=== PATIENT | female | born 1990 | race Caucasian/White ===

== ENCOUNTER 2018-11-23 02:15 | Emergency (ER) | payer OTHER ==
[2018-11-23 02:47] VITALS: BP 148/88; PULSE 92; TEMP 98.1; BMI 28.3
--- NOTE | 2018-11-23 02:49 | PDOC ---
History of Present Illness - General Chief Complaint: Rash Stated Complaint: ALLERGIC REACTION Time Seen by Provider: 11/23/18 02:49 - History of Present Illness Initial Comments: 11/23/18 02:49 Ms. Tse is a 28 yo female w/ no pmh who presents for evaluation of symptoms of itchy, burning rash over her trunk. Patient reports it started 3 days ago. Denies any other associated symptoms. No one else has a similar rash. Denies any known allergies. Localizes rash to her trunk, tops of her legs MENDY, minimally on arms. The patient denies chest pain, shortness of breath, headache and dizziness. Denies fever, chills, nausea, vomit, diarrhea and constipation. Denies dysuria, frequency, urgency and hematuria. Past History - Past Medical History Allergies/Adverse Reactions: Allergies Allergy/AdvReac Type Severity Reaction Status Date / Time No Known Allergies Allergy Verified 11/23/18 02:46 Home Medications: Ambulatory Orders Prednisone [Deltasone] 40 mg PO DAILY #8 tablet 11/23/18 - Suicide/Smoking/Psychosocial Hx Smoking History: Never smoked Have you smoked in the past 12 months: No Information on smoking cessation initiated: No Hx Alcohol Use: No Drug/Substance Use Hx: No Review of Systems - Review of Systems Comments:: 11/23/18 02:50 GENERAL/CONSTITUTIONAL: No fever or chills. No weakness. HEAD, EYES, EARS, NOSE AND THROAT: No change in vision. No ear pain or discharge. No sore throat. CARDIOVASCULAR: No chest pain or shortness of breath RESPIRATORY: No cough, wheezing, or hemoptysis. GASTROINTESTINAL: No nausea, vomiting, diarrhea or constipation. GENITOURINARY: No dysuria, frequency, or change in urination. MUSCULOSKELETAL: No joint or muscle swelling or pain. No neck or back pain. SKIN: +Rash as described. NEUROLOGIC: No headache, vertigo, loss of consciousness, or change in strength/ sensation. ENDOCRINE: No increased thirst. No abnormal weight change HEMATOLOGIC/LYMPHATIC: No anemia, easy bleeding, or history of blood clots. ALLERGIC/IMMUNOLOGIC: No hives or skin allergy. *Physical Exam - Vital Signs Last Vital Signs Temp Pulse Resp BP Pulse Ox 98.1 F 92 H 16 148/88 100 11/23/18 02:15 11/23/18 02:15 11/23/18 02:15 11/23/18 02:15 11/23/18 02:15 - Physical Exam Comments: 11/23/18 02:50 GENERAL: Awake, alert, and fully oriented, in no acute distress HEAD: No signs of trauma, normocephalic, atraumatic EYES: PERRLA, EOMI, sclera anicteric, conjunctiva clear ENT: Auricles normal inspection, hearing grossly normal, nares patent, oropharynx clear without exudates. Moist mucosa NECK: Normal ROM, supple, no lymphadenopathy, JVD, or masses LUNGS: No distress, speaks full sentences, clear to auscultation bilaterally HEART: Regular rate and rhythm, normal S1 and S2, no murmurs, rubs or gallops, peripheral pulses normal and equal bilaterally. ABDOMEN: Soft, nontender, normoactive bowel sounds. No guarding, no rebound. No masses EXTREMITIES: Normal inspection, Normal range of motion, no edema. No clubbing or cyanosis. NEUROLOGICAL: Cranial nerves II through XII grossly intact. Normal speech, normal gait, no focal sensorimotor deficits SKIN: +Erythematous, allergic type rash noted primarily to chest, abdomen, upper arms Medical Decision Making - Medical Decision Making 11/23/18 04:06 Ms. Tse is a 28 yo female w/ pmh as described who presents for evaluation of symptoms concerning for dermatologic rash. Patient denies any new soaps, contacts, etc. but says she did hold a cat recently. Patient instructed to take prednisone (sent to pharmacy) and benadryl as needed for rash. Discharging patient to home for further outpatient f/u as needed. *DC/Admit/Observation/Transfer Diagnosis at time of Disposition: Rash - Discharge Dispostion Disposition: HOME Condition at time of disposition: Fair - Prescriptions Prescriptions: Prednisone [Deltasone] 40 mg PO DAILY #8 tablet - Referrals Referrals: Yesy Arce MD [Primary Care Provider] - Fabian Blevins MD [Non Staff, Medical] - - Patient Instructions Printed Discharge Instructions: DI for Rash Additional Instructions: You were evaluated today in the ER for your rash. We sent a prescription to your pharmacy for treatment. Take all medication as proscribed. You may also use benadryl and cortisone cream per package instructions for further treatment as needed. We have provided quill worker information you may use if needed for further evaluation. Return to ER if any fever, chills, increase in pain, or other concerning symptoms. Usted fue evaluado hoy en la jennifer de emergencias por jhaveri erupcin. Le enviamos myra receta a jhaveri farmacia para jhaveri tratamiento. Dalia todos los medicamentos segn lo prescrito. Justin puede usar la crema de benadryl y cortisona segn las instrucciones del paquete para un tratamiento adicional segn sea necesario. Hemos proporcionado informacin dermatolgica que puede utilizar si es necesario para myra evaluacin adicional. Regrese a la jennifer de emergencias si tiene fiebre, escalofros, aumento del dolor u otros sntomas relacionados. Print Language: [place] CITIZEN - Post Discharge Activity
[2018-11-23] MEDS ORDERED: diphenhydrAMINE HCL 25 MG CAPSULE (FP) PO ONE ×2 (03:43→04:07)
[2018-11-23] MEDS ORDERED: predniSONE 20 MG TABLET (UD) PO ONE (03:43)
[2018-11-23] MEDS ORDERED: predniSONE 20 MG TABLET (UD) ONE (04:07)
--- NOTE | 2018-11-23 04:20 | PDOC ---
Attending Attestation - Resident Resident Name: Danie Huffman - ED Attending Attestation I have performed the following: I have examined & evaluated the patient, The case was reviewed & discussed with the resident, I agree w/resident's findings & plan, Exceptions are as noted - HPI HPI: 11/23/18 04:16 28 yo F no pmhx here with c/o rash. states started 3 days ago. diffuse over trunk neck and little on back. spares arms and leg. no new lotion or cream no new meds or detergent. only thing is she was with a cat prior to onset of rash. no tongue or lip swelling. no wheezing. no h/o seasonal allergies. did not take anything prior to arrival. - Physicial Exam PE: 11/23/18 04:19 awake alert lungs clear bilaterally heart rrr no mrg abd soft nt nd. skin with diffuse contact dermatitis , eczamatous rash. raised. erythematous, . diffuse across stomach, chest and neck. no herald patch. - Medical Decision Making 11/23/18 04:20 pt with dermatitis , likley hypersensitivity, usure possible from cat. vera treat with benadryl claritin and prednisone. fu pcp.
== END 2018-11-23 04:24 | disposition home or self-care (01) ==
LOC: JER 02:15
DX: R21 Rash and other nonspecific skin eruption (principal)
CPT/HCPCS: 99281-25